=== PATIENT | male | born 1985 | race Caucasian/White ===

== ENCOUNTER 2017-08-22 13:30 | Emergency (ER) | payer OTHER ==
[~2017-08-22] VITALS: Ht 175.3 cm; Wt 69.4 kg
[2017-08-22 13:35] VITALS: BP_SYST 151
--- NOTE | 2017-08-22 13:38 | NUR ---
Patient triaged and placed in waiting room. VSS and patient appears in no acute distress at this time. Accompanied by MOTHER, awaiting available bed, and MD notified of need for MSE.
[2017-08-22] MEDS ORDERED: KETOROLAC TROMETHAMINE 60 MG/2 ML VIAL IM ONE (14:00)
--- NOTE | 2017-08-22 14:14 | NUR ---
Pt complains of pinched nerve below neck and radiates to left arm for about 3.5 weeks. Pt states it has gotten worse and has caused him to feel nauseous and weak. Per patient, has tingling sensation going down to left arm and fingers are numb. No other injuries/complaints per patient or noted. Mother at bedside.
--- NOTE | 2017-08-22 14:14 | NUR ---
ER YUMIKO Chowdhury at bedside examining patient.
--- NOTE | 2017-08-22 14:14 | NUR ---
Pt placed in [facility], endorsed care to Alina SWIFT.
--- NOTE | 2017-08-22 14:27 | NUR ---
Medications were given, pt tolerated well. No adverse reaction, will continue to monitor.
[2017-08-22] MEDS ORDERED: HYDROcodone/ACETAMIN 10-325 MG TAB PO ONE (14:30)
[2017-08-22] MEDS ORDERED: DEXAMETHASONE SOD PHOSPHATE 10 MG/ML VIAL IM ONE (14:30)
[2017-08-22 14:48] VITALS: BP_SYST 132
--- NOTE | 2017-08-22 14:48 | NUR ---
Patient given written and verbal discharge instructions and verbalizes understanding. ER MD discussed with patient the results and treatment provided. Patient in stable condition. ID arm band removed. Rx of Medrol Dosepak, Tramadol, Soma, Mobic given. Patient educated on pain management and to follow up with PMD. Pain Scale 4. Luciana YOGHURT MAKER aware, medication was given here and prescription home. Opportunity for questions provided and answered.
== END 2017-08-22 14:48 | disposition home or self-care (01) ==
LOC: SED 13:30
DX: S16.1XXA Strain of muscle, fascia and tendon at neck level, initial encounter (principal); M54.12 Radiculopathy, cervical region; R03.0 Elevated blood-pressure reading, without diagnosis of hypertension; F17.200 Nicotine dependence, unspecified, uncomplicated; Z71.6 Tobacco abuse counseling; X58.XXXA Exposure to other specified factors, initial encounter; Y93.89 Activity, other specified; Y92.89 Other specified places as the place of occurrence of the external cause; Y99.8 Other external cause status
CPT/HCPCS: 96372; 99284; J1100; J1885